=== PATIENT | male | born 1970 | race Caucasian/White ===

== ENCOUNTER 2022-09-18 13:38 | Emergency (ER) | payer MEDICAID, SELFPAY ==
--- NOTE | ~2022-09-18 | XR_ITS ---
EXAMINATION: XR SHOULDER, RIGHT CLINICAL INFORMATION: Right shoulder pain. COMPARISON: None available. TECHNIQUE: Three views of the right shoulder. FINDINGS: The humeral head is positioned superiorly relative to the bony glenoid with narrowing of the humeral acromial space and moderate degenerative joint changes. There is no acute fracture or dislocation. The visualized right ribs are intact. The soft tissues are unremarkable. XR/XR shoulder RT min 2V IMPRESSION: Evidence for chronic rotator cuff tear with associated moderate degenerative changes. No overt acute abnormality.
[2022-09-18 13:43] VITALS: BP 154/86; PULSE 74; RESP 18; TEMP 36.9; O2SAT 99; BMI 24.1
--- NOTE | 2022-09-18 13:45 | ED_ITS ---
HPI - Extremity Problem General Chief complaint: Extremity Problem Stated complaint: RT SHLDR DISLOCATION,-PAIN Source: patient and EMS Mode of arrival: EMS History of Present Illness HPI Narrative: 52-year-old male who arrives via EMS without any trauma and states his right shoulder has hurt him since February. Related Data Allergies Allergy/AdvReac Type Severity Reaction Status Date / Time Unable to Assess Allergy Verified 09/18/22 13:44 Review of Systems Review of Systems: Pertinent positives and negatives as stated in HPI PMFSH Past Medical History Source: nursing notes reviewed Social History Social History Advance Directives: No Physical Exam Vital Signs: Vital Signs: Last Vital Signs Temp 98.5 F 09/18/22 13:43 Pulse 74 09/18/22 13:43 Resp 18 09/18/22 13:43 BP 154/86 H 09/18/22 13:43 Pulse Ox 99 09/18/22 13:43 O2 Del Method Room Air 09/18/22 13:43 BMI result Body Mass Index 24.1 VITAL SIGNS: Reviewed. GENERAL: Well developed, well nourished, in no acute distress. HEAD: Normocephalic/atraumatic EYES: PERRLA, EOMI EARS: Ext canals without abnormality OROPHARYNX: no oral lesions noted, posterior pharynx clear, patient has no teeth NECK: Supple, no adenopathy LUNGS: Normal breath sounds. No adventitious sounds or accessory muscle use. SpO2<99> CARDIOVASCULAR: Regular rate and rhythm without noted murmurs ABDOMEN: Soft, non-tender, non-distended with bowel sounds. MUSCULOSKELETAL: No tenderness, deformities, or effusions noted on gross inspection. EXTREMITIES: No cyanosis, clubbing or edema. RIGHT SHOULDER: No deformity, no swelling/erythema/induration, no tenderness to palpation at the AC/bicipital groove, sensation and radial/ulnar pulses are intact distally. Hand blue leather sorter 5/5 SKIN: Inspection of the skin reveals no rashes, ulcerations, jaundice, pallor, or petechiae. NEUROLOGIC: Alert and oriented x 2. Strength and sensation to light touch were grossly intact x 4. Medical Decision Making Medical Decision Making MDM Narrative: 52-year-old male describes right shoulder pain that he has had since February. There is atraumatic history and no evidence to suggest neurovascular compromise or dislocations this time. Will obtain x-rays to confirm good placement and otherwise patient will be discharged back to care 1 facility with a referral to follow-up with his primary care provider and/or orthopedics as needed. I reviewed all investigations my interpretation is this is a chronic rotator cuff tear and may improve with referral to physical therapy for pain improvement or combination analgesics. He is otherwise discharged home in stable condition. Differential Diagnosis Please see the discussion above Radiology Impression Radiologist Impression: My interpretation is in agreement with radiology's impression of the imaging studies. Discharge Plan Discharge Clinical Impression: Rotator cuff arthropathy of right shoulder Patient Disposition: [facility] Instructions: Rotator Cuff Injury Exercises (DC), Rotator Cuff Tendinitis (ED) Additional Instructions: 1. Resume all home medications as prescribed. 2. Recommend oxus-xoo-noksuuk Tylenol/ibuprofen as needed for pain control. 3. May benefit from referral to physical therapy for strengthening. Return to the ER for any worsening symptoms. Referrals: Zion Oh DO [Primary Care Provider] - (Patient could improved from physical therapy:))
--- NOTE | 2022-09-18 15:12 | MHC.EDTECH ---
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
== END 2022-09-18 17:25 | disposition skilled nursing facility (03) ==
PROVIDERS: Emergency Provider Student in an Organized Health Care Education/Training Program; PCP Hospitalist
DX: M19.011 Primary osteoarthritis, right shoulder (principal); M75.101 Unspecified rotator cuff tear or rupture of right shoulder, not specified as traumatic; M25.511 Pain in right shoulder
CPT/HCPCS: 73030; 99283

== ENCOUNTER 2023-02-19 08:58 | Outpatient (AMB) | payer MEDICAID, SELFPAY ==
--- NOTE | 2023-02-19 09:05 | MHC.OFFVIS ---
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 Patient reports that he has limited range of motion has been present about a year now. Denies injury. Allergies Unable to Assess Allergy (Verified 02/19/23 09:13) Medication List - Last Reconciled 02/19/23 by Dee Rush, RN acetaminophen 325 mg PO QID PRN bisacodyl 10 mg RI DAILY PRN lactulose 20 grams PO BID thiamine HCl (vitamin B1) 50 mg PO DAILY HPI HOUSEKEEPING/LAUNDRY SUPERVISOR-Right shoulder pain HPI Details Harlan is a 52 year old man who presents with complaints of ~1 year right shoulder pain. He complains today primarily of limited ROM and use of his shoulder. he denies any pain at this time. He has been attending PT for some time now. He denies any falls or known injury. He denies any numbness or tingling. Review of Systems Const All systems reviewed & are unremarkable except as noted in HPI and below Physical Exam Const General: no acute distress, alert and awake Orientation/consciousness: patient oriented x3 HEENT Head: Yes normocephalic and Yes atraumatic Eyes EOM: EOMs intact bilaterally Resp Effort & Inspection: normal respiratory effort and able to speak in complete sentences Cardio Jugular venous distension: no JVD Skin General skin exam: turgor normal Rashes: no rashes Neuro General: patient oriented x3 Extrem Other: Right Shoulder: liomted overhead motion. 0-40 deg abduction. ER to 20 deg. + drop arm Psych Appearance: grossly normal Affect: normal affect Attitude: cooperative Results Reviewed Results Reviewed: I personally reviewed relevant radiographs. RTC arthropathy with acetabularization of acromion Assessment & Plan Assessment & Plan (1) Rotator cuff arthropathy of right shoulder: Code(s): M12.811 - Other specific arthropathies, not elsewhere classified, right shoulder Plan: 52 year old man with right shoulder RTC arthropathy. He has limited shoulder ROM, but denies any pain. He has been attending PT, without significant benefit according to him. I discussed his diagnosis and treatment options. No acute intervention warranted. I do not recommend surgery at this time. I recommend he continue activity as tolerated and discontinue PT. If he develops any pain he can follow up to discuss injections. Otherwise follow up prn. Plan This is a Coding Level of Care Code New Pt Level 4 (15716) Diagnoses Rotator cuff arthropathy of right shoulder M12.811
== END 2023-02-19 09:28 | disposition home or self-care (01) ==
PROVIDERS: PCP Hospitalist; Visit Provider Orthopaedic Surgery
DX: M12.811 Other specific arthropathies, not elsewhere classified, right shoulder (principal)
CPT/HCPCS: 99203

== ENCOUNTER → 2023-02-19 08:58 | Outpatient (BNVA) | payer MEDICAID, SELFPAY | PROVIDERS: PCP Hospitalist; Visit Provider Orthopaedic Surgery ==

== ENCOUNTER 2023-04-03 08:23 | Outpatient (REF) | payer MEDICAID, SELFPAY ==
--- NOTE | ~2023-04-03 | XR_ITS ---
EXAMINATION: XR KNEE, LEFT XR KNEE AP STANDING CLINICAL INFORMATION: Pain. COMPARISON: None available. TECHNIQUE: Four views of the left knee. AP bilateral standing view of the knees was obtained. FINDINGS: The lateral joint space compartment of the right knee is well-maintained, with peripheral osteophyte formation. There is moderate narrowing of the medial joint space compartment of the right knee, with peripheral osteophyte formation. There is a secondary mild varus configuration. There is chondrocalcinosis. The lateral joint space compartment of the left knee is well-maintained, with mild peripheral osteophyte formation. There is marked narrowing of the medial joint space compartment, with peripheral osteophyte formation. This is a secondary moderately severe varus configuration. The left patellofemoral compartment is mildly narrowed, with peripheral osteophyte formation. There is a moderate left knee joint effusion. An approximately 4.0 x 2.1 x 2.4 cm heterogeneously ossified density with irregular margins arises in the vicinity of the medial femoral condyle. XR/XR knee standing BI IMPRESSION: 1. A 4.0 cm irregularly marginated, heterogeneously ossified density arises from the left medial femoral condyle. Recommend further evaluation with MRI. If outside comparison imaging is available, recommend direct comparison. 2. There is moderate degenerative change of the medial joint space compartment of the right knee. There is a secondary mild varus configuration. 3. There is tricompartment osteoarthritic change of the left knee, most pronounced of the medial joint space compartment, where it is marked. There is a secondary moderately severe varus configuration. 4. There is chondrocalcinosis, which can be associated with CPPD.
--- NOTE | ~2023-04-03 | XR_ITS ---
EXAMINATION: XR KNEE, LEFT XR KNEE AP STANDING CLINICAL INFORMATION: Pain. COMPARISON: None available. TECHNIQUE: Four views of the left knee. AP bilateral standing view of the knees was obtained. FINDINGS: The lateral joint space compartment of the right knee is well-maintained, with peripheral osteophyte formation. There is moderate narrowing of the medial joint space compartment of the right knee, with peripheral osteophyte formation. There is a secondary mild varus configuration. There is chondrocalcinosis. The lateral joint space compartment of the left knee is well-maintained, with mild peripheral osteophyte formation. There is marked narrowing of the medial joint space compartment, with peripheral osteophyte formation. This is a secondary moderately severe varus configuration. The left patellofemoral compartment is mildly narrowed, with peripheral osteophyte formation. There is a moderate left knee joint effusion. An approximately 4.0 x 2.1 x 2.4 cm heterogeneously ossified density with irregular margins arises in the vicinity of the medial femoral condyle. XR/XR knee LT 2V IMPRESSION: 1. A 4.0 cm irregularly marginated, heterogeneously ossified density arises from the left medial femoral condyle. Recommend further evaluation with MRI. If outside comparison imaging is available, recommend direct comparison. 2. There is moderate degenerative change of the medial joint space compartment of the right knee. There is a secondary mild varus configuration. 3. There is tricompartment osteoarthritic change of the left knee, most pronounced of the medial joint space compartment, where it is marked. There is a secondary moderately severe varus configuration. 4. There is chondrocalcinosis, which can be associated with CPPD.
== END 2023-04-03 08:24 | disposition home or self-care (01) ==
LOC: HO.HOSX 08:23
PROVIDERS: Visit Provider Orthopaedic Surgery
DX: M17.12 Unilateral primary osteoarthritis, left knee (principal); M25.462 Effusion, left knee
CPT/HCPCS: 20610; 73560; 73565; 99212; J0665; J1100

== ENCOUNTER 2023-04-03 09:33 | Outpatient (AMB) | payer MEDICAID, SELFPAY ==
--- NOTE | 2023-04-03 09:58 | A.OFFVIS_ITS ---
Intake Vital Signs 04/03/23 09:59 Height 5 ft 10 in Weight 168 lb BMI 24.1 Intake Visit Reasons: Newprob-Left knee swelling Intake Note: Harlan is a 52 year old male who presents today with Irina rodríguez CNA from [facility], for a new problem visit with complaints of left knee pain & swelling. Patient reports that he has had left knee pain/swelling for about 10 years. No previous hx. Allergies No Known Allergies Allergy (Verified 04/03/23 10:07) HPI Newprob-Left knee swelling HPI Details Harlan is a 52 year old man who presents with complaints of chronic left knee pain & swelling. He complains of pain with daily activity, worse with walking or using stairs He says this has been present for ~10 years now, and he denies any prior treatment. Review of Systems Const All systems reviewed & are unremarkable except as noted in HPI and below Physical Exam Vital Signs: BMI result Body Mass Index 24.1 Const General: no acute distress, alert and awake Orientation/consciousness: patient oriented x3 HEENT Head: Yes normocephalic and Yes atraumatic Eyes EOM: EOMs intact bilaterally Resp Effort & Inspection: normal respiratory effort and able to speak in complete sentences Cardio Jugular venous distension: no JVD Skin General skin exam: turgor normal Rashes: no rashes Neuro General: patient oriented x3 Extrem Other: Left Knee: Large effusion No redness Minimal pain Psych Appearance: grossly normal Affect: normal affect Attitude: cooperative Office Procedures Joint Injection/Drain Joint Injection/Drain Details: Injected 1 mL of Decadron and 3 mL 1% lidocaine and 3 mL of 0.25% Marcaine. Site was prepped using aseptic technique. Patient tolerated the procedure well. Primary Site: left knee Approach Used: anterolateral Coding 40736 - Large joint Procedure code (CPT) selection complete Results Reviewed Results Reviewed: I personally reviewed relevant radiographs 1. A 4.0 cm irregularly marginated, heterogeneously ossified density arises from the left medial femoral condyle. Recommend further evaluation with MRI. If outside comparison imaging is available, recommend direct comparison. 2. There is moderate degenerative change of the medial joint space compartment of the right knee. There is a secondary mild varus configuration. 3. There is tricompartment osteoarthritic change of the left knee, most pronounced of the medial joint space compartment, where it is marked. There is a secondary moderately severe varus configuration. 4. There is chondrocalcinosis, which can be associated with CPPD. Assessment & Plan Assessment & Plan (1) Osteoarthritis of left knee: Code(s): M17.12 - Unilateral primary osteoarthritis, left knee Plan: This is a 52 year old man with severe left knee OA and large effusion. He has pain with daily activity and denies any prior treatment. I discussed his diagnosis and treatment options. I aspirated ~75mLs of normal-appearing joint fluid and injected his knee with a steroid cocktail. He is not a good surgical candidate given his age. I recommend he remain active as tolerated. He can follow up prn. (2) Effusion, left knee: Code(s): M25.462 - Effusion, left knee Plan Scribed for Ji Abbasi MD by Hermes Garcia, territory sales manager medical, on 04/03/23 at 10:15 AM, EST. Orders: Orders XR knee standing BI 04/03/23 M25.569 - Pain in unspecified knee XR knee LT 2V 04/03/23 M25.569 - Pain in unspecified knee Coding Level of Care Code Est Pt Level 3 (66414) Diagnoses Osteoarthritis of left knee M17.12 Effusion, left knee M25.462 CPT Codes Coding - 95354 Large joint: 52510 - Large joint ([id number])
[2023-04-03 09:59] VITALS: BMI 24.1
== END 2023-04-03 11:02 | disposition home or self-care (01) ==
PROVIDERS: PCP Hospitalist; Visit Provider Orthopaedic Surgery
DX: M17.12 Unilateral primary osteoarthritis, left knee (principal); M25.462 Effusion, left knee
CPT/HCPCS: 20610; 99213

== ENCOUNTER 2023-05-07 15:29 | Emergency (ER) | payer MEDICAID, SELFPAY ==
[2023-05-07 15:36] VITALS: BP 107/67; PULSE 84; O2SAT 98
[2023-05-07 15:44] VITALS: BP 167/84; PULSE 84; RESP 16; TEMP 37; O2SAT 98; BMI 28.2
--- NOTE | 2023-05-07 17:15 | ED.EXTPRO ---
HPI - Extremity Problem General Chief complaint: Extremity Injury, Lower Stated complaint: L KNEE SWELLING Time Seen by Provider: 05/07/23 16:52 Source: patient Mode of arrival: EMS Limitations: no limitations History of Present Illness HPI Narrative: Patient with longstanding left knee arthritis status post 3 time knee aspiration last one was 04/03 patient comes here as having increased swelling with pain left knee and difficulty in walking no fever no skin colored discoloration patient had Decadron injection on 04/03 Related Data Home Medications Medication Instructions Recorded Confirmed acetaminophen 325 mg capsule 325 mg PO QID PRN 02/19/23 02/19/23 bisacodyl 10 mg rectal suppository 10 mg VT DAILY PRN 02/19/23 02/19/23 lactulose 20 gram/30 mL oral 20 g PO BID 02/19/23 02/19/23 solution thiamine HCl (vitamin B1) 50 mg 50 mg PO DAILY 02/19/23 02/19/23 tablet Multi Vitamin PO 04/03/23 magnesium hydroxide 400 mg/5 mL 5 ml PO BEDTIME 04/03/23 oral suspension sennosides 8.6 mg tablet (Natural 8.6 mg PO DAILY 04/03/23 Senna Laxative) Allergies Allergy/AdvReac Type Severity Reaction Status Date / Time No Known Allergies Allergy Verified 04/03/23 10:07 Review of Systems Review of Systems: Yes all other systems are reviewed and are negative [facility] Social History Social History Smoked in Last 30 Days: No Advance Directives: No Physical Exam Vital Signs: Vital Signs: Last Vital Signs Temp 98.6 F 05/07/23 15:44 Pulse 84 05/07/23 15:44 Resp 16 05/07/23 15:44 BP 167/84 H 05/07/23 15:44 Pulse Ox 98 05/07/23 15:44 O2 Del Method Room Air 05/07/23 15:44 BMI result Body Mass Index 28.2 Appearance: Alert. Oriented X3. No acute distress. Neck: Normal inspection. Neck supple. CVS: Normal heart rate and rhythm. Pulses normal. Respiratory: No respiratory distress. Equal air entry bilateral, Abdomen: Soft and nontender. Skin: Skin warm and dry. Normal skin color. Normal skin turgor. Extremities: No lower extremity edema. No calf tenderness significant left knee effusion with diffuse tenderness limited flexion his skin color normal temperature normal Neuro: Oriented X 3. No motor deficit. Medications Administered Discontinued Medications Generic Name Dose Route Start Last Admin Trade Name Mira PRN Reason Stop Dose Admin Bupivacaine HCl 3 ml 05/07/23 17:22 05/07/23 18:42 Bupivacaine Mpf 0.5 % 10 Ml Vial INFILTRATI 05/07/23 17:23 3 ml ONCE ONE Administration Lidocaine HCl 5 ml 05/07/23 17:22 05/07/23 18:43 Lidocaine Hcl 2 % Mpf 5 Ml Vial INFILTRATI 05/07/23 17:23 5 ml ONCE ONE Administration Medical Decision Making Medical Decision Making MDM Narrative: Patient with arthritis with frequent joint fusion status post knee aspiration fluid yellow in color with normal viscosity no signs of infection discharge patient back to nursing Lab Data MDM Lab Attestation statement: I reviewed the patient's lab results. Labs: Lab Results 05/07/23 Range/Units 18:33 Synovial Source l knee Synovial WBC 12.204 X10*3/uL Synovial RBC 0.002 X10*6/uL Synovial Neutrophils 74 % Synovial Lymphocytes 2 % Synovial Monocytes 24 % Procedures Joint Aspiration/Injection Joint Asp./Inject. 1: Time Out Performed: Yes Side of body: left Joint Aspirated: knee Ultrasound Guidance: No Skin Prep: Povidone-Iodine1% Local Anesthetic: lidocaine 2% Amount of anesthesia used (mL): 1 Needle Size Used: 20G Fluid Obtained: clear Total fluid obtained (mL): 95 Medication Injected, if any: other (Lidocaine 2 mL plus bupivacaine 3 mL) Amount of medication injected (mL): 5 Patient Tolerated Procedure: well Complications: none Discharge Plan Discharge Clinical Impression: Osteoarthritis of left knee Patient Disposition: Home, Self-Care Instructions: Osteoarthritis (ED) Additional Instructions: Care as advised Wear the Jovani wrap for support Follow-up with orthopedic Prescriptions: No Action acetaminophen 325 mg capsule 325 mg PO QID PRN bisacodyl 10 mg suppository 10 mg VT DAILY PRN lactulose 20 gram/30 mL solution 20 g PO BID thiamine HCl (vitamin B1) 50 mg tablet 50 mg PO DAILY sennosides [Natural Senna Laxative] 8.6 mg tablet 8.6 mg PO DAILY magnesium hydroxide 400 mg/5 mL suspension 5 ml PO BEDTIME Multi Vitamin PO Referrals: Ji Abbasi MD [Physician] - 2 weeks Interventions: ED Discharge Assessment Last Done: 05/07/23 19:50 Discharge Date/Time: 05/07/23 19:51
[2023-05-07] MEDS: BUPivacaine MPF 0.5 % 10 ML VIAL 3 ML INFILTRATI (18:42)
[2023-05-07] MEDS: Lidocaine HCl 2 % MPF 5 ML VIAL INFILTRATI (18:43)
[2023-05-07 20:17] LABS: RBC Synovial Fluid 0.002 X10*6/uL
[2023-05-07 20:18] LABS: BF Shift QC OK YES; Lymphocytes Synovial Fluid 2 %; Man Diluent Bkgrd OK YES; Neutrophils Synovial Fluid 74 %
[2023-05-07 20:19] LABS: Monocytes Synovial Fluid 24 %
== END 2023-05-07 19:51 | disposition home or self-care (01) ==
PROVIDERS: Emergency Provider Internal Medicine
DX: M17.12 Unilateral primary osteoarthritis, left knee (principal); Z79.899 Other long term (current) drug therapy
CPT/HCPCS: 20610; 87070; 87073; 87205; 89051; 89060; 99284; J0665

== ENCOUNTER 2023-05-28 10:43 | Outpatient (AMB) | payer MEDICAID, SELFPAY ==
--- NOTE | 2023-05-28 10:48 | A.OFFVIS_ITS ---
Intake Vital Signs 05/28/23 10:49 Height 5 ft 6 in Weight 175 lb BMI 28.2 Intake Visit Reasons: ov-Left knee pain and swelling Intake Note: Harlan is a 53 year old male who presents today for a follow up of his left knee, at his last appointment on 04/03/23 the knee was aspirated and injected. Patient reports that he is doing well, he is not having pain. Allergies No Known Allergies Allergy (Verified 04/03/23 10:07) HPI ov-Left knee pain and swelling HPI Details Harlan is a 53 year old man with left knee OA. He has a hx of multiple aspirations and injections, his last dpne in clinic was on 04/03/23. He was seen in the ED on 05/07/23 for worse knee swelling, where his knee was aspirated. He says he is doing better today and his pain & swelling have improved. Review of Systems Const All systems reviewed & are unremarkable except as noted in HPI and below Physical Exam Vital Signs: BMI result Body Mass Index 28.2 Const General: no acute distress, alert and awake Orientation/consciousness: patient oriented x3 HEENT Head: Yes normocephalic and Yes atraumatic Eyes EOM: EOMs intact bilaterally Resp Effort & Inspection: normal respiratory effort and able to speak in complete sentences Cardio Jugular venous distension: no JVD Skin General skin exam: turgor normal Rashes: no rashes Neuro General: patient oriented x3 Extrem Other: Left knee mild effusion Mild gait antalgia Mild medial and lateral ttp Psych Appearance: grossly normal Affect: normal affect Attitude: cooperative Assessment & Plan Assessment & Plan (1) Osteoarthritis of left knee: Code(s): M17.12 - Unilateral primary osteoarthritis, left knee Plan: Left knee OA Pain tolerable. May return in 6 weeks for injection if he wants. Too early for an injection right now Plan Scribed for Ji Abbasi MD by Hermes Garcia medical office assistant, on 05/28/23 at 10:54 AM, EST. Coding Level of Care Code Est Pt Level 3 (17137) Diagnoses Osteoarthritis of left knee M17.12
[2023-05-28 10:49] VITALS: BMI 28.2
== END 2023-05-28 11:12 | disposition home or self-care (01) ==
PROVIDERS: Visit Provider Orthopaedic Surgery
DX: M17.12 Unilateral primary osteoarthritis, left knee (principal)
CPT/HCPCS: 99212

== ENCOUNTER → 2023-05-28 10:43 | Outpatient (BNVA) | payer MEDICAID, SELFPAY | PROVIDERS: Visit Provider Orthopaedic Surgery | DX: M17.12 Unilateral primary osteoarthritis, left knee (principal) | CPT/HCPCS: 99212 ==

== ENCOUNTER 2023-07-17 10:02 | Outpatient (AMB) | payer MEDICAID, SELFPAY ==
--- NOTE | 2023-07-17 10:08 | MHC.OFFVIS ---
Intake Vital Signs 07/17/23 10:10 Height 5 ft 6 in Weight 175 lb BMI 28.2 Intake Visit Reasons: ov- LT Knee OA Intake Note: Harlan is a 53 year old male who presents today for a follow up of his left knee OA. Patient reports he is not wanting an injection for today. He feels ok and denies pain. Allergies No Known Allergies Allergy (Verified 07/17/23 10:10) HPI ov- LT Knee OA HPI Details Harlan is a 53 year old man with left knee OA. He has a hx of multiple aspirations and injections, his last was on 04/03/23. This was helpful. He does not know why he is here today as he doen NOT want surgery and denies pain. He wears a knee sleeve and has discomfort with extended activity. He states his knee is not currently swollen. Review of Systems Const All systems reviewed & are unremarkable except as noted in HPI and below Physical Exam Vital Signs: BMI result Body Mass Index 28.2 Const General: no acute distress, alert and awake Orientation/consciousness: patient oriented x3 HEENT Head: Yes normocephalic and Yes atraumatic Mouth: moist mucous membranes Eyes General: appearance normal, both eyes and all related structures EOM: EOMs intact bilaterally Chest Other: no audible wheezing. Resp Other: No audible wheezing Effort & Inspection: normal respiratory effort and able to speak in complete sentences Cardio Other: Radial pulse palpable with no rythmic abnormalities Jugular venous distension: no JVD Back/Spine/Pelvis Cervical Spine: normal cervical lordosis Skin General skin exam: turgor normal Rashes: no rashes Neuro General: patient oriented x3 Extrem Other: mild effusion varus alignement varus thrust with gait 5-125 deg motion Psych Appearance: grossly normal Mental Status: mental status grossly normal Speech and movement: Normal speech and movement present Affect: normal affect Attitude: cooperative Assessment & Plan Assessment & Plan (1) Osteoarthritis of left knee: Code(s): M17.12 - Unilateral primary osteoarthritis, left knee Plan: This is a 53 yo M with severe left knee OA. He lives in an assisted living facility because of cognitive impairment. He is very pleasanat and denies pain. In order to discuss TKA we would knee to have him be disabled. He is only 53 and functional. I recommend that when he develops effusion he returns to see me for injection/aspiration. Coding Level of Care Code Est Pt Level 4 (57605) Diagnoses Osteoarthritis of left knee M17.12
[2023-07-17 10:10] VITALS: BMI 28.2
== END 2023-07-17 10:27 | disposition home or self-care (01) ==
PROVIDERS: Visit Provider Orthopaedic Surgery
DX: M17.12 Unilateral primary osteoarthritis, left knee (principal)
CPT/HCPCS: 99212

== ENCOUNTER → 2023-07-17 10:02 | Outpatient (BNVA) | payer MEDICAID, SELFPAY | PROVIDERS: Visit Provider Physician Assistant | DX: M17.12 Unilateral primary osteoarthritis, left knee (principal) | CPT/HCPCS: 99212; J1040 ==

== ENCOUNTER 2025-04-23 08:42 | Emergency (ER) | payer MEDICAID, SELFPAY ==
--- NOTE | ~2025-04-23 | CT_ITS ---
CLINICAL HISTORY: blurry vision left eye CT head without contrast Comparison: None provided Findings: No intra-axial mass, midline shift, hydrocephalus, or acute hemorrhage. No significant atrophy-like change or white matter disease. There is no sinus or mastoid fluid. The orbits are unremarkable. No skull fracture. IMPRESSION: 1. No acute intracranial findings. This document has been electronically signed by: Mathew Powers MD on 04/23/2025 10:29:41
[2025-04-23 08:51] VITALS: BP 141/88; BP 144/82; PULSE 76; PULSE 88; RESP 14; TEMP 36.7; O2SAT 95; O2SAT 97; BMI 41.1
[2025-04-23 08:51] LABS: Glucose, Whole Blood 188 mg/dL (60-115)
[2025-04-23 08:55] VITALS: BP 141/88; PULSE 76; RESP 14; TEMP 36.7; O2SAT 95
--- NOTE | 2025-04-23 08:58 | ECG_ITS ---
Test Reason : STROKE Blood Pressure : */* mmHG Vent. Rate : 83 BPM Atrial Rate : 83 BPM P-R Int : 166 ms QRS Dur : 108 ms QT Int : 360 ms P-R-T Axes : 37 -36 -2 degrees QTcB Int : 423 ms Sinus rhythm with marked sinus arrhythmia Left axis deviation Incomplete right bundle branch block Abnormal ECG No previous ECGs available Referred By: Ed Victoria Electronically Signed By: REILLY HERNÁNDEZ MD
[2025-04-23 09:14] LABS: Hematocrit 53.8 % (42.0-52.0); Hemoglobin 17.9 g/dl (14.0-18.0); Imm Gran Abs Auto 0.04 X10*3/uL (0.00-0.03); Imm Gran Pct Auto 0.5 % (0.0-0.4); Lymphocytes Absolute Auto 1.5 X10*3/uL (1.2-4.9); MANUAL DIFF FLAG NO; Mean Corpuscular HGB Conc 33.3 g/dl (31.0-36.0); Mean Corpuscular Hemoglobin 28.9 pg (27.0-33.0); Mean Corpuscular Volume 86.8 fL (80.0-98.0); NRBC Abs Auto 0.000 X10*3/uL (0.0-0.012); NRBC Pct Auto 0.0 /100WBC (0.0-0.2); Platelet Count 222 X10*3/uL (160-400); Red Blood Count 6.20 X10*6/uL (4.60-5.80); White Blood Count 7.7 X10*3/uL (4.8-10.8)
--- NOTE | 2025-04-23 09:16 | ED_ITS ---
HPI - Neuro Symptoms/Deficit General Chief Complaint: Stroke Stated Complaint: SLURRED SPEECH Time Seen by Provider: 04/23/25 08:47 Source: patient and EMS Mode of arrival: ambulatory Limitations: no limitations History of Present Illness ED Provider: HPI Narrative: 55-year-old male with a history of anoxic brain injury, coming from [facility] concerns for stroke by staff, patient has baseline dysarthria, weakness in his right upper extremity, went to bed at 23:00 states he woke up with a blurry vision in the left eye by the time he presented to the ER stated the blurry vision was resolved, was left eye only, no you have facial droop or weakness, staff also thought that his speech was off baseline, patient did not feel so. No chest pain, no dyspnea, no fevers or chills no dysuria reported. Related Data Home Medications ?Medication ?Instructions ?Recorded ?Confirmed acetaminophen 325 mg capsule 325 mg PO QID PRN 3 02/19/23 bisacodyl 10 mg rectal suppository 10 mg HI DAILY PRN 02/19/23 02/19/23 lactulose 20 gram/30 mL oral 20 g PO BID 02/19/2310/07 solution thiamine HCl (vitamin B1) 50 mg 50 mg PO DAILY 3 02/19/23 tablet Multi Vitamin PO 04/03/23 magnesium hydroxide 400 mg/5 mL 5 ml PO BEDTIME oral suspension sennosides 8.6 mg tablet (Natural 8.6 mg PO DAILY 03/18 12/07 Senna Laxative) Allergies Allergy/AdvReac Type Severity Reaction Status Date / Time No Known Allergies Allergy Verified 04/23/25 08:53 Review of Systems 2 Constitutional: Constitutional: Reports as per [facility] Social History Social History Alcohol intake: current Alcohol intake frequency: holidays/special occasions only Smoked in Last 30 Days: No Use of substances other than those prescribed or required for medical reasons: No Advance Directives: No Advance Directives Information Provided: Yes Do you have a plan to hurt others: No Plan Physical Exam 2 Exam: Exam: General: Looks age-appropriate, heavy-set male pupils 3 mm reactive bilaterally, ophthalmologic exam with vision intact bilaterally at bedside, extraocular movements are intact no visual calixto are intact, ophthalmoscopic exam with for without visualized, vasculature is unremarkable, red reflexes present bilaterally, no anterior flare cells, no conjunctival injection Neck: Supple, no LAD CV: RRR, no obvious murmurs appreciated Resp: ?No wheezing rales rhonchi no stridor moving air well Abd: ?Bowel sounds are present, no tenderness no rebound no rigidity MSK: decreased range of motion right shoulder due to shoulder arthropathy, this is chronic distally motor sensory intact, full range of motion left shoulder, intact strength bilateral lower extremities Skin: Warm, dry, intact, Neuro: ?Alert and oriented x3, no dysmetria left upper extremity no nystagmus, no obvious facial asymmetry noted, cranial nerves 2-12 intact, baseline speech deficit with dysarthria present but no aphasia Vital Signs: Vital Signs: Last Vital Signs Temp 98.0 F 04/23/25 08:55 Pulse 76 04/23/25 08:55 Resp 14 04/23/25 08:55 BP 141/88 H 04/23/25 08:55 Pulse Ox 95 04/23/25 08:55 O2 Del Method Room Air 04/23/25 08:55 BMI result Body Mass Index 41.1 Procedures Ultrasound ED POC Ultrasound: EMERGENCY ULTRASOUND REPORT?Point of Care Ocular Indication: blurry vision left eye Anterior Chamber:? lens is intact Posterior Chamber:? no retinal detachment no vitreous hemorrhage, optic nerve sheath diameter under 5 mm Orbit: unremarkable Impression: normal ultrasound Medical Decision Making Medical Decision Making [facility] Narrative: 9:30 AM 04/23/2025 (Dr. Ed Victoria): patient presented with non lateralizing lesions and chronic symptoms of dysarthria and intermittent blurry vision, on my examination the patient's report is that he did have some blurry vision that is back at baseline, no new neurologic deficits, last well known time 23:00 yesterday, did not activate as a stroke he had not feel further imaging such as CTA is indicated, bedside ultrasound without any evidence of anterior chamber issues or posterior chamber issues or increased intracranial pressure other considerations are CRAO, but did not feel that CT imaging with IV contrast indicated because baseline patient has no loss of vision, no visual field deficits no extraocular movement deficits posterior circulation strokes can affect occipital lobe causing, homonomus hemianopia but patient does not have these fidnings on exam, anterior circulation of carotid territory can cause monocular vision loss as well but again he does not have these changes, and surely TIA can present with amaurosis fugax however this did not present in that way, but from that standpoint brain MRI would be the study of choice for TIA workup, will discuss with the patient if indicated 12:21 PM 04/23/2025 (Dr. Ed Victoria): patient has been back his baseline, I discussed with him blood work, CT, told him that in order to obtain MRI would have to admit him for TA workup or also feel very comfortable discharging him home as I have not really seen any neurologic deficits his workup has been reassuring, in his symptoms fully resolved, feel feels very comfortable with this plan and stated that he would like to be discharged the sooner the better' Differential Diagnosis Differential Diagnoses: The differential diagnosis associated with the presentation includes ( stroke, mass, TBI, TIA, acute on closure glaucoma, retinal detachment,CRAO,CRVO) Admission/Observation Consideration of admission/observation: Escalation of care including admission/observation considered Lab Data MDM Lab Attestation statement: I reviewed the patient's lab results. 04/23/25 09:10 04/23/25 09:42 Labs: Lab Results 04/23/25 04/23/25 04/23/25 Range/Units 08:47 09:09 09:10 WBC 7.7 (4.8-10.8) X10*3/uL RBC 6.20 H (4.60-5.80) X10*6/uL Hgb 17.9 (14.0-18.0) g/dl Hct 53.8 H (42.0-52.0) % MCV 86.8 (80.0-98.0) fL MCH 28.9 (27.0-33.0) pg MCHC 33.3 (31.0-36.0) g/dl RDW 12.4 (11.0-16.0) % Plt Count 222 (160-400) X10*3/uL MPV 10.0 (9.4-12.4) fL Immature Gran % (Auto) 0.5 H (0.0-0.4) % Neut % (Auto) 71.4 (45-73) % Lymph % (Auto) 19.8 L (20-40) % Otero % (Auto) 6.6 (2-11) % Eos % (Auto) 0.9 (0-4) % Baso % (Auto) 0.8 (0-2) % Lymph # (Auto) 1.5 (1.2-4.9) X10*3/uL Otero # (Auto) 0.5 (0.1-1.2) X10*3/uL Eos # (Auto) 0.1 (0.0-0.4) X10*3/uL Baso # (Auto) 0.1 (0.0-0.2) X10*3/uL Abs Immat Gran (auto) 0.04 H (0.00-0.03) X10*3/uL Absolute Neuts (auto) 5.5 (2.0-8.3) x10*3/uL Absolute Nucleated RBC 0.000 (0.0-0.012) X10*3/uL Nucleated RBC % (auto) 0.0 (0.0-0.2) /100WBC Sodium (135-145) mmol/L Potassium (3.3-5.1) mmol/L Chloride (96-108) mmol/L Carbon Dioxide (22-29) mmol/L Anion Gap (12-20) BUN (9-16) mg/dL Creatinine (0.5-1.4) mg/dL Estim Creat Clear Calc Estimated GFR POC Glucose 188 H (60-115) mg/dL Random Glucose (60-115) mg/dL Calcium (8.4-10.2) mg/dL Total Bilirubin (0.0-1.0) mg/dL AST (5-37) U/L ALT (0-40) U/L Alkaline Phosphatase (39-117) U/L Troponin I High Sens < 2.7 (<3.5-35.0) ng/L Total Protein (6.5-8.0) g/dL Albumin (3.5-5.0) g/dL 04/23/25 Range/Units 09:42 WBC (4.8-10.8) X10*3/uL RBC (4.60-5.80) X10*6/uL Hgb (14.0-18.0) g/dl Hct (42.0-52.0) % MCV (80.0-98.0) fL MCH (27.0-33.0) pg MCHC (31.0-36.0) g/dl RDW (11.0-16.0) % Plt Count (160-400) X10*3/uL MPV (9.4-12.4) fL Immature Gran % (Auto) (0.0-0.4) % Neut % (Auto) (45-73) % Lymph % (Auto) (20-40) % Otero % (Auto) (2-11) % Eos % (Auto) (0-4) % Baso % (Auto) (0-2) % Lymph # (Auto) (1.2-4.9) X10*3/uL Otero # (Auto) (0.1-1.2) X10*3/uL Eos # (Auto) (0.0-0.4) X10*3/uL Baso # (Auto) (0.0-0.2) X10*3/uL Abs Immat Gran (auto) (0.00-0.03) X10*3/uL Absolute Neuts (auto) (2.0-8.3) x10*3/uL Absolute Nucleated RBC (0.0-0.012) X10*3/uL Nucleated RBC % (auto) (0.0-0.2) /100WBC Sodium 140 (135-145) mmol/L Potassium 4.2 (3.3-5.1) mmol/L Chloride 107 (96-108) mmol/L Carbon Dioxide 25 (22-29) mmol/L Anion Gap 12 (12-20) BUN 9 (9-16) mg/dL Creatinine 0.67 (0.5-1.4) mg/dL Estim Creat Clear Calc 160.6 Estimated GFR > 60 POC Glucose (60-115) mg/dL Random Glucose 141 H (60-115) mg/dL Calcium 9.2 (8.4-10.2) mg/dL Total Bilirubin 0.8 (0.0-1.0) mg/dL AST 43 H (5-37) U/L ALT 57 H (0-40) U/L Alkaline Phosphatase 72 (39-117) U/L Troponin I High Sens (<3.5-35.0) ng/L Total Protein 7.7 (6.5-8.0) g/dL Albumin 4.1 (3.5-5.0) g/dL Independent Interpretation I performed an independent interpretation of an: EKG (83 bpm, otherwise normal ECG without dysrhythmia, AV jacquelyn blocks or ST-T changes to suspect underlying ACS, my independent interpretation) Radiology Impression Discussion of test interpretation with radiology: I have reviewed the radiologist's reading. Chronic Conditions Patient?s care impacted by: Other ( anoxic brain injury) NIH Stroke Scale Internal: Initial- Upon Arrival Level of Consciousness: Alert Level of Consciousness Questions: Answers both questions correctly Level of Consciousness Commands: Performs both tasks correctly Best Gaze: Normal Visual: No visual loss Facial Palsy: Normal Motor Arm (Right): Some effort against gravity (has rotator cuff isuues right shoulder) Motor Arm (Left): No drift Motor Leg (Right): No drift Motor Leg (Left): No drift Limb Ataxia: Present in one limb (due to chronic issues) Sensory: Normal Best Language: No aphasia Dysarthia: Mild to moderate dysarthria (this is baseline) Extinction and Inattention: No abnormality Score: 4 Discharge Plan Discharge Clinical Impression: Blurred vision, left eye, History of anoxic brain injury Patient Disposition: Home, Self-Care Instructions: Blurred Vision (ED) Additional Instructions: patient presented with concerns of left-sided blurry vision, and there was mentioning that he may have worsening slurred speech, this speech from my understanding has not really changed, blurry vision has fully resolved, he had bedside ultrasound of the heart to evaluate for any retinal detachment or vitreous hemorrhage, visual exam was completely unremarkable, he had CAT scan of the brain to make sure there are no masses or bleeds or older stroke this was negative, blood work reassuring I recommend re-evaluation by his provider, and if there is still any other concerns outpatient brain MRI any other issues concerns come back to the ER Prescriptions: No Action acetaminophen 325 mg capsule 325 mg PO QID PRN bisacodyl 10 mg suppository 10 mg HI DAILY PRN lactulose 20 gram/30 mL solution 20 g PO BID thiamine HCl (vitamin B1) 50 mg tablet 50 mg PO DAILY sennosides [Natural Senna Laxative] 8.6 mg tablet 8.6 mg PO DAILY magnesium hydroxide 400 mg/5 mL suspension 5 ml PO BEDTIME Multi Vitamin PO Print Language: Turkmen
--- OUTSIDE RECORDS SUMMARY | 2025-04-23 09:16 | XMS_ITS ---
Author Name [facility] Organization Unknown Care Team Organization Name Specialty Phone Email Start Date End Da te [facility] ([facility] 2023 [facility] 0 01/13/2023 01/04/2024 [facility] 0 07/08/2022 01/04/2024 [facility] 03/19/2022 [facility] 02/08/2001/04/2024 [facility] 202001/04/2024
[2025-04-23 09:36] LABS: Troponin-I High Sensitivity < 2.7 ng/L (<3.5-35.0)
[2025-04-23 11:01] LABS: Alanine Aminotransferase 57 U/L (0-40); Albumin Level 4.1 g/dL (3.5-5.0); Alkaline Phosphatase 72 U/L (39-117); Anion Gap 12 (12-20); Aspartate Amino Transferase 43 U/L (5-37); Blood Urea Nitrogen 9 mg/dL (9-16); Calcium 9.2 mg/dL (8.4-10.2); Carbon Dioxide 25 mmol/L (22-29); Chloride 107 mmol/L (96-108); Creatinine Clr Calc Pharmacy 160.6; Estimated Glomerular Filt Rate > 60; Potassium 4.2 mmol/L (3.3-5.1); Sodium 140 mmol/L (135-145); Total Protein 7.7 g/dL (6.5-8.0)
[2025-04-23 12:00] VITALS: BP 142/75; PULSE 57; RESP 16; O2SAT 98
[2025-04-23 15:52] VITALS: BP 125/77; PULSE 79; RESP 17; TEMP 36.5; O2SAT 96
[2025-04-23 17:08] VITALS: BP 125/77; PULSE 79; RESP 17; TEMP 36.5; O2SAT 96
--- NOTE | 2025-04-23 17:12 | PC.NURSE ---
RN spoke with RN at [facility] to give report on pt discharge and transportation update.
== END 2025-04-23 17:11 | disposition home or self-care (01) ==
PROVIDERS: Emergency Provider Emergency Medicine; PCP Hospitalist
DX: R47.81 Slurred speech (principal); H53.8 Other visual disturbances; R53.1 Weakness; Z87.820 Personal history of traumatic brain injury
CPT/HCPCS: 36415; 70450; 80053; 82947; 84484; 85025; 93005; 99285

== ENCOUNTER → 2025-04-23 08:58 | Outpatient (BNV) | payer MEDICAID, SELFPAY | PROVIDERS: Emergency Provider Emergency Medicine; PCP Hospitalist; Visit Provider Internal Medicine Cardiovascular Disease | DX: I49.9 Cardiac arrhythmia, unspecified (principal); I45.10 Unspecified right bundle-branch block | CPT/HCPCS: 93010 ==

== ENCOUNTER → 2025-04-23 09:29 | Outpatient (BNV) | payer MEDICAID, SELFPAY | PROVIDERS: Emergency Provider Emergency Medicine; PCP Hospitalist; Visit Provider Radiology Vascular & Interventional Radiology | DX: H53.8 Other visual disturbances (principal) | CPT/HCPCS: 70450 ==